=== PATIENT | male | born 1960 | race Two or more races ===

== ENCOUNTER 2018-02-06 17:56 | Emergency (ER) | payer OTHER ==
[~2018-02-06] VITALS: Ht 167.6 cm; Wt 90.7 kg
[2018-02-06] MEDS: Bacitracin Oint UD TOPIC ONE (18:22)
[2018-02-06] MEDS: Tetanus/Diptheria/Pertussis Vaccine 0.5ml Syr IM ONE (18:23)
[2018-02-06] MEDS: Lidocaine 1% MPF 10mg/ml 5ml INJ ONE (18:23)
[2018-02-06 19:02] VITALS: BP 122/73
[2018-02-06] MEDS ORDERED: IBUPROFEN600 MG ORAL (19:24)
[2018-02-06 19:30] VITALS: BP 122/73
--- NOTE | 2018-02-06 20:22 | Emergency Room Report ---
History of Present Illness General Chief Complaint: Laceration Source: Patient Present Illness HPI Patient is a 57-year-old male presenting for left hand laceration. He is R hand dominant. He states that he was in the kitchen when hour prior to arrival and cut the left index finger. He noticed minor bleeding. He immediately clean the area and applied pressure. Pain is a 3 out of 10 dull ache and does not radiate. He denies any numbness or tingling. He is unsure of last tetanus shot. He denies any other symptoms. Allergies: Coded Allergies: No Known Allergies (Unverified , 02/06/18) Patient History Past Medical History: see triage record Pertinent Family History: none Reviewed Nursing Documentation: PMH: Agreed; PSxH: Agreed Nursing Documentation-PMH Past Medical History: No Stated History Review of Systems All Other Systems: negative except mentioned in HPI Physical Exam Vital Signs Date Time Temp Pulse Resp B/P (MAP) Pulse Ox O2 Delivery O2 Flow Rate FiO2 02/06/18 18:00 98.4 57 16 122/73 99 Room Air Sp02 EP Interpretation: reviewed, normal General Appearance: no apparent distress, alert, GCS 15, non-toxic Head: normocephalic, atraumatic Eyes: bilateral eye normal inspection, bilateral eye PERRL Musculoskeletal: back normal, gait/station normal, normal range of motion Neurologic: alert, oriented x3, responsive, motor strength/tone normal, sensory intact, speech normal Psychiatric: judgement/insight normal, memory normal, mood/affect normal, no suicidal/homicidal ideation Skin: laceration - 1.5cm linear laceration to the L index finger distal to PIPJ Lymphatic: no adenopathy Procedures Splinting Splinting : Consent: Verbal Location: L index finger Pre-Made Type: metal Splint: finger splint Pre-Proc Neuro Vasc Exam: normal Post-Proc Neuro Vasc Exam: normal Patient Tolerated: Well Complications: None Laceration/Wound Repair Laceration/Wound Repair : Consent: Verbal Wound Location: upper extremity Wound's Depth, Shape: superficial, linear Wound Length (cm): 1 Wound Explored: clean Irrigated w/ Saline (ccs): 100 Betadine Prep?: Yes Anesthesia: 1% Lidocaine Volume Anesthetic (ccs): 4 Wound Debrided: minimal Wound Repaired With: sutures Suture Size/Type: 4:0, proline Number of Sutures: 3 Layer Closure?: No Sterile Dressing Applied?: Yes Splint Applied?: Yes Type of Splint Applied: finger Sling Applied?: No Patient Tolerated: Well Complications: None Medical Decision Making PA Attestation Dr. Jeffery is my supervising physician. Patient management was discussed with my supervising physician Diagnostic Impression: Primary Impression: Laceration of finger Qualified Codes: S61.211A - Laceration without foreign body of left index finger without damage to nail, initial encounter ER Course Patient is a 57-year-old male presenting for left hand laceration. Ddx considered include but not limited to fracture, tendon/ligament injury, avulsion, nerve damage PE: NAD 1.5cm linear laceration to the L index finger distal to PIPJ. Sensation is intact to light touch. Full active range of motion is intact. No active bleeding The wound was irrigated with normal saline and cleaned with betadine. A 27g needle was used to administer 4mL of lidocaine w.o epi for local anasthesia. 3 sutures were placed with 4-0 Nylon. The wound was well approximated and the patient tolerated the procedure well. The wound was then cleaned and bacitracin was applied. A splint was applied. Pt was told to F/U with PCP for wound check and suture removal. If he is unable to, he was told to return to the ED. he was told to keep the wound clean and dry. ER precautions given Last Vital Signs Date Time Temp Pulse Resp B/P (MAP) Pulse Ox O2 Delivery O2 Flow Rate FiO2 02/06/18 19:30 98.4 68 16 122/73 99 Room Air Status: improved Disposition: HOME, SELF-CARE Condition: Improved Scripts Ibuprofen* (MOTRIN*) 600 Mg Tablet 600 MG ORAL Q8H PRN for For Pain, #30 TAB 0 Refills Prov: ALBERTO CHACON. 02/06/18 Patient Instructions: Laceration Care, Adult Additional Instructions: I discussed my findings with the patient. All questions and concerns have been answered. Treatment and medication compliance have been addressed. I advised the patient that they need to follow up with PMD in 5-7 days for wound check and suture removal. If you are unable to see PMD, return to the ED in 5-7 days. Return to ED if pain remains or worsens, you notice discharge from the wound, the wound continues to bleed, the suture/s fall out, you notice a fever or chills, or for any reason. Patient is advised to keep the wound clean and apply an antibacterial ointment. Patient verbalized understanding of discharge instructions. ALBERTO CHACON Feb 06, 2018 20:22
== END 2018-02-06 19:25 | disposition home or self-care (01) ==
LOC: EMR 18:32
DX: S61.211A Laceration without foreign body of left index finger without damage to nail, initial encounter (principal); Z23 Encounter for immunization; W26.0XXA Contact with knife, initial encounter; Y93.G3 Activity, cooking and baking; Y92.89 Other specified places as the place of occurrence of the external cause
CPT/HCPCS: 90471; 90715; 99283

== ENCOUNTER 2018-02-12 10:50 | Emergency (ER) | payer OTHER ==
[~2018-02-12] VITALS: Ht 167.6 cm; Wt 90.7 kg
[~2018-02-12 10:50] MED LIST: IBUPROFEN600 MG ORAL
[2018-02-12] MEDS ORDERED: NKM (10:59)
[2018-02-12 11:00] VITALS: BP 112/71
[2018-02-12 11:31] LABS: APPEARANCE,URINE CLEAR; BILIRUBIN, URINE NEGATIVE (NEGATIVE); COLOR,URINE PALE YELLOW; KETONES,URINE NEGATIVE (NEGATIVE); LEUKOCYTE ESTERASE ,URINE NEGATIVE (NEGATIVE); NITRITE,URINE NEGATIVE (NEGATIVE); UROBILINOGEN,URINE NORMAL MG/DL (0.0-1.0)
[2018-02-12 11:35] LABS: GLUCOSE, URINE (UA) NEGATIVE (NEGATIVE); PH,URINE 7 (4.5-8.0); PROTEIN,URINE 1+ (NEGATIVE)
[2018-02-12 12:37] VITALS: BP 117/73
--- NOTE | 2018-02-13 14:20 | Emergency Room Report ---
History of Present Illness General Chief Complaint: Abdominal Pain Source: Patient Present Illness HPI 57-year-old male presents ED for evaluation. Patient states that he's been having on and off abdominal pain for 2 weeks. Dull, pubic, 5 out of 10, nonradiating. Denies nausea or vomiting. Denies dysuria or hematuria. No aggravating or relieving factors. Patient denies any pain at this time. Patient is also here for suture removal. Had a laceration to his finger 6 days ago and was repaired. Patient states wound is healing well. No pain or discharge. No other aggravating relieving factors. Denies any other associated symptoms Allergies: Coded Allergies: No Known Allergies (Unverified , 02/06/18) Patient History Past Surgical History: none Pertinent Family History: none Social History: Denies: smoking, alcohol use, drug use Immunizations: UTD Reviewed Nursing Documentation: PMH: Agreed; PSxH: Agreed Nursing Documentation-PMH Past Medical History: No Stated History Review of Systems All Other Systems: negative except mentioned in HPI Physical Exam Vital Signs Date Time Temp Pulse Resp B/P (MAP) Pulse Ox O2 Delivery O2 Flow Rate FiO2 02/12/18 10:56 98.2 60 16 109/67 98 Room Air Sp02 EP Interpretation: reviewed, normal General Appearance: no apparent distress, alert, GCS 15, non-toxic Head: normocephalic, atraumatic Eyes: bilateral eye normal inspection, bilateral eye PERRL ENT: hearing grossly normal, normal pharynx, no angioedema, normal voice Neck: full range of motion, supple/symm/no masses Respiratory: chest non-tender, lungs clear, normal breath sounds, speaking full sentences Cardiovascular #1: regular rate, rhythm, no edema Cardiovascular #2: 2+ carotid (R), 2+ carotid (L), 2+ radial (R), 2+ radial (L) , 2+ dorsalis pedis (R), 2+ dorsalis pedis (L) Gastrointestinal: normal bowel sounds, non tender, soft, non-distended, no guarding, no rebound Rectal: deferred Genitourinary: normal inspection, no CVA tenderness Musculoskeletal: back normal, gait/station normal, normal range of motion, non- tender Neurologic: alert, oriented x3, responsive, motor strength/tone normal, sensory intact, speech normal Psychiatric: judgement/insight normal, memory normal, mood/affect normal, no suicidal/homicidal ideation Reflexes: 3+ bicep (R), 3+ bicep (L), 3+ tricep (R), 3+ tricep (L), 3+ knee (R) , 3+ knee (L) Skin: normal color, no rash, warm/dry, well hydrated, laceration - laceration to flexor surface L index finger. sutures in place. healing well. no erythema/ induration/discharge. full ROM Lymphatic: no adenopathy Medical Decision Making Diagnostic Impression: Primary Impression: Visit for wound check ER Course Hospital Course 57-year-old M presents to ED for wound check. laceration to L index finger. also c/o intermittent abd pain Clinical course Patient placed on stretcher. After initial history, physical exam reveals male in no acute distress. Abdomen soft. No suprapubic tenderness. No flank pain. No guarding or rebound. UA ordered. Unremarkable Laceration to left index finger is healing well however has only been 6 days. I splinted patient in flexor surfaces patient should have sutures removed in 10- 14 days. Patient understands. Explained to patient that if abdominal pain returns or gets worse or is with associated nausea vomiting or is more persistent he should come back to the ER Patient does not have a PMD. Just moved here from [facility]. We'll provide PMD/clinic referrals Diagnosis - encounter for wound re-check Stable and discharged to home. have sutures removed 10-14 days after repair. Followup with PMD. Return to ED if any signs of infection develop Labs Test 02/12/18 11:13 Urine Color Pale yellow Urine Appearance Clear Urine pH 7 (4.5-8.0) Urine Specific [place] 1.010 (1.005-1.035) Urine Protein 1+ (NEGATIVE) Urine Glucose (UA) Negative (NEGATIVE) Urine Ketones Negative (NEGATIVE) Urine Blood Negative (NEGATIVE) Urine Nitrite Negative (NEGATIVE) Urine Bilirubin Negative (NEGATIVE) Urine Urobilinogen Normal MG/DL (0.0-1.0) Urine Leukocyte Esterase Negative (NEGATIVE) Urine RBC 0 /HPF (0 - 0) Urine WBC 0 /HPF (0 - 0) Urine Squamous Epithelial Cells None /LPF (NONE/OCC) Urine Bacteria None /HPF (NONE) Last Vital Signs Date Time Temp Pulse Resp B/P (MAP) Pulse Ox O2 Delivery O2 Flow Rate FiO2 12/28/18 12:37 98.6 66 17 117/73 99 Room Air Status: improved Disposition: HOME, SELF-CARE Condition: Stable Referrals: [facility] Patient Instructions: Abdominal Pain, Adult Additional Instructions: return to ED in 4-6 days for suture removal. return to ED if abdominal pain gets worse or is more persistent. otherwise followup with your PMD Andrew Jeffery MD Feb 13, 2018 14:20
== END 2018-02-12 12:32 | disposition home or self-care (01) ==
LOC: EMR 11:11
DX: S61.211D Laceration without foreign body of left index finger without damage to nail, subsequent encounter (principal); X58.XXXD Exposure to other specified factors, subsequent encounter; Z48.00 Encounter for change or removal of nonsurgical wound dressing; R10.9 Unspecified abdominal pain
CPT/HCPCS: 81003; 99283